=== PATIENT | male | born 1995 | race Caucasian/White ===

== ENCOUNTER 2022-03-01 14:31 | Emergency (ER) | payer BC, SELFPAY ==
[2022-03-01 14:32] VITALS: BP 146/101; PULSE 105; RESP 14; TEMP 36.3; O2SAT 96; BMI 35.8
[2022-03-01 15:03] VITALS: BP 132/87; PULSE 86; RESP 14
--- NOTE | 2022-03-01 15:14 | EKG12_ITS ---
Test Reason : Blood Pressure : / mmHG Vent. Rate : 069 BPM Atrial Rate : 069 BPM P-R Int : 142 ms QRS Dur : 090 ms QT Int : 352 ms P-R-T Axes : 031 025 016 degrees QTc Int : 377 ms Normal sinus rhythm with sinus arrhythmia Normal ECG Confirmed by KODAK CONTRERAS, WINSOME ([id number]), news video editor ROSA IRVIN ([id number]) on 03/02/2022 2:50:04 PM Referred By: LINDSEY Confirmed By:WINSOME CANDELARIO MD
--- NOTE | 2022-03-01 15:15 | EDS_ITS ---
HPI History of Present Illness Chief Complaint: Palpitations Narrative Narrative: 26-year-old male with no past medical history presenting with palpitations since last evening. Patient states it is intermittent. He does not have any pain with it. He does not feel lightheaded or dizzy. Patient has no shortness of breath. Patient states that it will happen at rest or when he is moving. Nothing makes it worse or better. Denies any cardiac or pulmonary history. No recent travel history, immobilization, hormone supplementation, calf pain or swelling, history of DVT/PE, history of cancer. No nausea or vomiting. He was otherwise healthy prior to this. [facility] Medical History Stargardt's disease Medical History no medical history Home Medications doxycycline hyclate 100 mg PO DAILY #14 cap 03/01/22 [Rx Last Taken Unknown] Allergy/AdvReac Type Severity Reaction Status Date / Time cephalexin [From Keflex] Allergy Anaphylaxis Verified 03/01/22 14:34 Surgical History no surgical history Social History Smoking Status: Current some day smoker tobacco type: cigarettes ROS ROS ED Constitutional Constitutional ED: Denies chills, fever(s) or sweats Eyes Eyes: Denies blurry vision or change in vision ENT ENT ED: Denies ear pain or sore throat Cardiovascular Cardiovascular: Reports palpitations; Denies chest pain or racing heartbeat Respiratory/Chest Respiratory/Chest: Denies cough, dyspnea or sputum Gastrointestinal Gastrointestinal: Denies abdominal pain, constipation, diarrhea, nausea or vomiting Genitourinary Genitourinary ED: Denies dysuria, hematuria or urinary frequency Musculoskeletal Musculoskeletal: Denies arthralgias, myalgias or neck pain Integumentary Denies abscess, Abrasions or rash Neurologic Neurologic: Denies headache(s), paresthesias or weakness Psychiatric Psychiatric: Denies anxiety, depression, suicidal ideation or suicidal thoughts Endocrine Endocrinology: Denies polydipsia or polyuria EXAM Physical Exam Const Vital Signs: 03/01/22 14:32 03/01/22 15:03 03/01/22 15:04 Temperature 97.4 F L Temperature Source Temporal Pulse Rate 105 H 86 Respiratory Rate 14 14 Respiratory Effort Normal Non-Labored Blood Pressure 146/101 H 132/87 H Blood Pressure Mean 116 102 Pulse Ox 96 Oxygen Delivery Method Room Air Room Air 03/01/22 15:14 03/01/22 17:50 Temperature Temperature Source Pulse Rate 82 Respiratory Rate 18 Respiratory Effort Blood Pressure 138/84 H Blood Pressure Mean Pulse Ox 99 Oxygen Delivery Method Room Air Positive well nourished General Appearance ED: NAD; Negative for pallor HEENT Reports moist mucous membranes Negative for trauma Eyes PERRL and EOMs intact bilaterally Resp normal respiratory effort and clear to auscultation bilaterally Cardio regular rate and regular rhythm GI normal to inspection, nondistended, normoactive bowel sounds Extremity normal to inspection General Extremety ED: Negative for edema or tenderness General Extremity: Negative for edema Neuro oriented x3, CN's II-XII intact bilaterally and no sensory deficits noted Sensorium / Orientation: alert Motor Exam: strength 5/5 throughout Psych mental status grossly normal Skin no rashes or lesions noted General Skin Exam: Negative for jaundice or pallor MDM MDM MDM Narrative Medical decision making narrative: 26-year-old otherwise healthy male presenting with palpitations which started last evening. He has no associated symptoms with it. He states that he does have a history of anxiety 10 years ago when he had generalized anxiety disorder. He does not state that he has had that since. He is not medicated for it. He is not established with a primary care physician. I obtained an EKG and on my interpretation he has a normal sinus rhythm with a ventricular rate of 69 bpm without signs of ischemic change. CBC and BMP within normal limits. High-sensitivity troponin is less than 3. Chest x-ray on my interpretation shows a left lower lobe infiltrate. The radiologist does agree. After further discussing this with the patient he states that he has been working nights in the cold on [employer]. He had COVID-19 7 months ago. He did not need hospitalization. It is possible this could be remnants of that before because he is not having fever, chills, cough, chest pain. Rapid Covid is negative. D-dimer is negative. I feel at this point patient can be treated clinically as acute acquired pneumonia. He started on doxycycline. He is given return precautions and referral for follow-up Impression: 1. Palpitations 2. Community-acquired pneumonia Lab Data Labs: Laboratory Results - last 24 hr 03/01/22 03/01/22 03/01/22 15:10 15:10 15:55 WBC 7.2 RBC 4.81 Hgb 14.7 Hct 40.9 MCV 85.0 MCH 30.6 MCHC 35.9 RDW Std Deviation 36.2 RDW Coeff of Melina 11.8 Plt Count 235 MPV 10.0 Immature Gran % (Auto) 0.300 Neut % (Auto) 69.3 Lymph % (Auto) 16.9 L Mckenzie % (Auto) 10.7 H Eos % (Auto) 2.4 Baso % (Auto) 0.4 Absolute Neuts (auto) 5.0 Absolute Lymphs (auto) 1.22 Nucleated RBC % 0 D-Dimer Quant (PE/DVT) < 0.27 L Sodium 139 Potassium 4.0 Chloride 108 H Carbon Dioxide 27.0 Anion Gap 4 L BUN 20 H Creatinine 1.04 Estim Creat Clear Calc 105.75 Est GFR (MDRD) Af Amer 109 Est GFR (MDRD) Non-Af 90 BUN/Creatinine Ratio 19.2 Glucose 105 Calcium 8.5 Troponin I High Sens < 3 L Radiography Diagnostic Testing: Clinical Impression(s) from Imaging Studies Chest X-Ray 03/01/22 15:30 IMPRESSION: Patchy left lower lobe infiltrate. Radiological follow-up recommended. Electronically Signed: Britton Dixon MD at 15:42 EDT , Discharge Plan Triage Chief Complaint: Palpitations ED Provider: John Dasilva Dx/Rx/DC Orders Instructions: ED Palpitations, ED Pneumonia (Adult) Prescriptions: New doxycycline hyclate 100 mg capsule 100 mg PO DAILY Qty: 14 RF: 0 Primary Care Provider: Care Physician,No Primary Referrals: Fast,Sydney, DO [NON-STAFF] - 3-5 Days Care Physician,No Primary [Primary Care Provider] - Disposition Disposition: Home, Self Care Discharge Date/Time: 03/01/22 17:51
--- NOTE | 2022-03-01 15:19 | NURSING ---
NO OLD EKGS
--- NOTE | 2022-03-01 15:20 | NURSING ---
CALLED [facility], ETA IS 90 MIN
[2022-03-01 15:22] LABS: Absolute Lymphocyte Count 1.22 X10^3/uL (0.83-4.51); Basophil# 0.03 X10^3/uL; Basophil% 0.4 % (0-1); Eosinophil# 0.17 X10^3/uL; Eosinophils% 2.4 % (0-5); Hematocrit 40.9 % (40-54); Hemoglobin 14.7 g/dL (13.0-16.5); Lymphocyte # 1.22 X10^3/ul (0.83-4.51); Lymphocyte % 16.9 % (19-41); Mean Corp Hgb Conc 35.9 g/dL (32-36); Mean Corpuscular Hgb 30.6 pg (27.0-32.0); Monocyte# 0.77 X10^3/uL; Monocyte% 10.7 % (0-10); NRBC Flagged by Analyzer 0 % (0-5); Neutrophil % 69.3 % (47-70); Platelet Count 235 K/mm3 (150-450); RBC Distribution Width CV 11.8 % (11.6-14.6); RBC Distribution Width SD 36.2 fl (35.1-43.9); Red Blood Count 4.81 M/mm3 (4.6-6.2); White Blood Count 7.2 K/mm3 (4.4-11.0)
--- NOTE | 2022-03-01 15:30 | RAD_ITS ---
STUDY: X-RAY CHEST REASON FOR EXAM: Male, 26 years old. Palpitations TECHNIQUE: Single AP portable view of the chest. COMPARISON: None. FINDINGS: EKG electrodes are seen. Patchy infiltrate in the left lower lobe. Follow-up is recommended. There is no demonstrated pleural abnormality. Normal size heart. Normal mediastinum and roberto. Normal visualized pulmonary arteries. Normal visualized aortic arch and descending thoracic aorta. Normal visualized thoracic spine. Normal visualized ribs, clavicles, and shoulders. There is no demonstrated abnormality of the visualized soft tissue structures of the upper abdomen. RAD/Chest 1 View (Portable) IMPRESSION: Patchy left lower lobe infiltrate. Radiological follow-up recommended. Electronically Signed: Britton Dixon MD at 15:42 EDT ,
[2022-03-01 15:48] LABS: Anion Gap 4 (5-15); BUN 20 mg/dL (7-18); BUN/Creat Ratio 19.2 RATIO (10-20); Calcium,Total 8.5 mg/dL (8.5-10.1); Chloride 108 mmol/L (98-107); Creatinine, Serum 1.04 mg/dL (0.70-1.30); EST Glomerular Filtration Rate 90 mL/min (>60); Est Glom Filt Rate - Afr Amer 109 mL/min (>60); Estimated Creatinine Clearance 105.75 ml/min; Glucose 105 mg/dL (74-106); Sodium Level 139 mmol/L (136-145); Troponin-I HS < 3 pg/mL (3.0-78.0)
--- NOTE | 2022-03-01 16:12 | CM.ED ---
SW Note Referral Source: Case Find Referral Reason: No Primary Care Physician (PCP) SW reviewed chart and noted that patient has no PCP. SW provided patient with list of [facility] and [facility] Physician List for reference. SW remains available for any additional needs. Plan: Provided patient with PCP information Denisse CASH
[2022-03-01 16:50] LABS: D-Dimer Quantitative (DVT/PE) < 0.27 FEU/ug/m (0.27-0.49)
[2022-03-01] MEDS: Doxycycline 100 MG CAPSULE PO (17:48)
[2022-03-01 17:50] VITALS: BP 138/84; PULSE 82; RESP 18; O2SAT 99
== END 2022-03-01 17:51 | disposition home or self-care (01) ==
PROVIDERS: Emergency Provider Student in an Organized Health Care Education/Training Program; Visit Provider Student in an Organized Health Care Education/Training Program
DX: J18.9 Pneumonia, unspecified organism (principal); R00.2 Palpitations; F17.210 Nicotine dependence, cigarettes, uncomplicated; H35.50 Unspecified hereditary retinal dystrophy; Z86.16 Personal history of COVID-19
CPT/HCPCS: 71045; 80048; 84484; 85025; 85379; 87426; 93005; 99284; A4216

== ENCOUNTER 2023-02-03 19:37 | Emergency (ER) | payer OTHER, SELFPAY ==
[2023-02-03 19:38] VITALS: BP 127/87; PULSE 127; RESP 15; TEMP 37.1; O2SAT 94
[2023-02-03 19:49] VITALS: BMI 39.5
--- NOTE | 2023-02-03 19:51 | EKG12_ITS ---
Test Reason : CP Blood Pressure : / mmHG Vent. Rate : 114 BPM Atrial Rate : 114 BPM P-R Int : 146 ms QRS Dur : 090 ms QT Int : 320 ms P-R-T Axes : 039 016 026 degrees QTc Int : 441 ms Sinus tachycardia Otherwise normal ECG Confirmed by GARCIA CONTRERAS, DEAN ([id number]), fashion editor ROSA IRVIN ([id number]) on 02/04/2023 2:44:14 PM Referred By: BENNY Confirmed By:DEAN ZELAYA MD
[2023-02-03] MEDS: 0.9% Normal Saline 1,000 ML 999 ML IV (19:54)
--- NOTE | 2023-02-03 19:54 | EX.ED.DYSGE1 ---
HPI <LILLY Diggs - Last Filed: 02/03/23 20:53> History of Present Illness Chief Complaint: Chest Pain Narrative Narrative: 27-year-old male with no past medical history presents with palpitations that started around 4 PM. While sitting he started to feel his heart race. His chest feels mildly tight but he has no chest pain. No shortness of breath, nausea or vomiting, or diaphoresis. He had similar symptoms a year ago and thinks it was dehydration. He states he has been eating and drinking normally today. Had some pizza, beer, and water for lunch. He smoked a few cigarettes today. He denies any other drug or alcohol use. No caffeine. He denies recent fever or upper respiratory symptoms. No history of DVT/PE, leg pain or swelling, recent surgery or travel, cough or hemoptysis, or hormone use. PFSH <LILLY Diggs - Last Filed: 02/03/23 20:53> [facility] Medical History Stargardt's disease Medical History no medical history Home Medications doxycycline hyclate 100 mg capsule 100 mg PO DAILY #14 caps 03/01/22 [Rx Last Taken Unknown] hydroxyzine HCl 50 mg tablet 50 mg PO BID PRN anxiet #7 tabs 02/03/23 [Rx Last Taken Unknown] Allergy/AdvReac Type Severity Reaction Status Date / Time cephalexin [From Keflex] Allergy Anaphylaxis Verified 02/03/23 19:40 Surgical History no surgical history Social History Smoking Status: Current some day smoker tobacco type: cigarettes ROS <LILLY Diggs - Last Filed: 02/03/23 20:53> ROS ED ROS Narrative Constitutional: Negative for fever, chills, malaise. ENT: Negative for sore throat, ear pain, rhinorrhea. CVS: Set of for palpitations. Negative for chest pain, syncope. Respiratory: Negative for shortness of breath, cough, orthopnea. GI: Negative for abdominal pain, nausea, vomiting, diarrhea, constipation, melena, hematochezia. : Negative for dysuria. Neuro: Negative for headache. Skin: Negative for rash, abscess, or wound. Musc: Negative for joint pain, swelling, trauma. EXAM <LILLY Diggs - Last Filed: 02/03/23 20:53> Physical Exam Narrative Exam Narrative: CONST: Patient sitting in no acute distress. EYES: Normal inspection. ENT: Normal inspection, moist mucous membranes. NECK: Normal inspection. RESP: No respiratory distress, CTAB. CVS: Rapid rate with regular rhythm, no murmur, no gallop. SKIN: Color normal, no rash, warm, dry, intact. EXTREMITIES: Normal appearance, no pedal edema. NEURO: Oriented x4. PSYCH: Normal affect. Const Vital Signs: 02/03/23 19:38 02/03/23 20:42 Temperature 98.7 F Temperature Source Temporal Pulse Rate 127 H 98 Respiratory Rate 15 Blood Pressure 127/87 H 123/83 H Blood Pressure Mean 100 96 Pulse Ox 94 96 Oxygen Delivery Method Room Air <Dr. Amrik Ruiz MD - Last Filed: 02/03/23 20:32> Physical Exam Const Vital Signs: 02/03/23 19:38 02/03/23 20:42 Temperature 98.7 F Temperature Source Temporal Pulse Rate 127 H 98 Respiratory Rate 15 Blood Pressure 127/87 H 123/83 H Blood Pressure Mean 100 96 Pulse Ox 94 96 Oxygen Delivery Method Room Air MDM <LILLY Diggs - Last Filed: 02/03/23 20:53> MDM MDM Narrative Medical decision making narrative: Patient presents with palpitations. He appears well nontoxic. Heart rate is in the 120s and normal sinus rhythm, otherwise normal vital signs. On auscultation heart is rapid but regular with no murmurs. Lungs are clear. He was given a liter of IV fluids and blood work obtained. CBC, BMP, troponin all within normal limits. EKG is no ischemic changes. I reassessed the patient after fluids and his heart rate is 98. He feels improved. He tells me he thinks this may have been anxiety as he is under a lot of stress recently. 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 He states he has had similar symptoms with anxiety before. I prescribed hydroxyzine to take as needed and a primary care referral. He also had some heartburn since he was lying down here and eating pizza earlier she was given a dose of Pepcid. He was comfortable with this plan and discharged in stable condition. Differential: Dehydration, electrolyte abnormality, ACS, arrhythmia Test considered but not ordered: He has no risk factors for PE/DVT and no shortness of breath so I did not order D-dimer. I have personally performed a face to face assessment of the patient and have reviewed the OLEKSANDR Note. I performed a substantive portion of the visit including all aspects of the following. My duque findings include: History is [26-year-old male no seen past medical history. Evaluated by our physician offset assistant press operator. Patient's concern he is having exhilarated heart rate and palpitations. Really no significant chest pain. He denies any fever or chills. No vomiting or diarrhea. He has no known cardiac history. He has not been ill recently. He has never had a DVT or PE. He denies any recent leg pain or swelling. No hemoptysis. No pleuritic chest discomfort. No recent travel, surgery or immobilization. He believes he may have had this 1 other time when he was dehydrated.] Exam is [well-appearing 27-year-old male. Vital signs are stable other than he is tachycardic at 127. Pulse ox 94% on room air no hypoxia. H EENT exam unremarkable. Moist extremities. Neck nontender no JVD. Lungs clear to auscultation bilaterally. Heart tachycardic rate about 125 no murmur. Chest were nontender. Abdomen soft nontender. Moves all 4 extremities. Equal symmetrical radial pulses. Calves are nontender that edema or cords. Neurologically is awake alert with no focal motor deficits. Clinically looks quite well.] Medical Decision Making [27-year-old with tachycardia. Undergo cardiac work-up. IV fluids. He has no reason of a DVT or PE.] Other additions or changes: [None] Lab Data Attestation: I reviewed the patient's lab results. Labs: Laboratory Results - last 24 hr 02/03/23 02/03/23 19:54 19:54 WBC 6.4 RBC 5.21 Hgb 15.7 Hct 44.1 MCV 84.6 MCH 30.1 MCHC 35.6 RDW Std Deviation 37.6 RDW Coeff of Melina 12.2 Plt Count 257 MPV 9.9 Immature Gran % (Auto) 0.200 Neut % (Auto) 62.9 Lymph % (Auto) 24.9 [place] % (Auto) 8.4 Eos % (Auto) 3.0 Baso % (Auto) 0.6 Absolute Neuts (auto) 4.1 Absolute Lymphs (auto) 1.60 Nucleated RBC % 0 Sodium 138 Potassium 3.7 Chloride 106 Carbon Dioxide 22.0 Anion Gap 10 BUN 15 Creatinine 0.84 Estim Creat Clear Calc 129.76 Est GFR (MDRD) Af Amer 139 Est GFR (MDRD) Non-Af 115 BUN/Creatinine Ratio 17.9 Glucose 132 H Calcium 8.7 Troponin I High Sens 4 Radiography Diagnostic Testing: Clinical Impression(s) from Imaging Studies Chest X-Ray 02/03/23 19:55 IMPRESSION: No radiographic evidence of acute cardiopulmonary disease. Electronically Signed: Drew Em MD at 20:23 EST Reading Location ID and State: [facility] / [place] , Service support , EKG Initial EKG: Attestation: I personally reviewed and interpreted this EKG as follows: Interpretation: Sinus Tachycardia Comments: ED attending interpretation of EKG is sinus tachycardia at 114 bpm with no ectopy or ST segment changes <Dr. Amrik Ruiz MD - Last Filed: 02/03/23 20:32> MDM MDM Narrative Medical decision making narrative: I have personally performed a face to face assessment of the patient and have reviewed the OLEKSANDR Note. I performed a substantive portion of the visit including all aspects of the following. My duque findings include: History is [26-year-old male no seen past medical history. Evaluated by our physician offset assistant press operator. Patient's concern he is having exhilarated heart rate and palpitations. Really no significant chest pain. He denies any fever or chills. No vomiting or diarrhea. He has no known cardiac history. He has not been ill recently. He has never had a DVT or PE. He denies any recent leg pain or swelling. No hemoptysis. No pleuritic chest discomfort. No recent travel, surgery or immobilization. He believes he may have had this 1 other time when he was dehydrated.] Exam is [well-appearing 27-year-old male. Vital signs are stable other than he is tachycardic at 127. Pulse ox 94% on room air no hypoxia. H EENT exam unremarkable. Moist extremities. Neck nontender no JVD. Lungs clear to auscultation bilaterally. Heart tachycardic rate about 125 no murmur. Chest were nontender. Abdomen soft nontender. Moves all 4 extremities. Equal symmetrical radial pulses. Calves are nontender that edema or cords. Neurologically is awake alert with no focal motor deficits. Clinically looks quite well.] Medical Decision Making [27-year-old with tachycardia. Undergo cardiac work-up. IV fluids. He has no reason of a DVT or PE.] Other additions or changes: [None] Lab Data Lab results narrative: CBC normal. White count 6.4. H&H of 15 and 44. Platelets 257. Electrolytes unremarkable gap of 10. Normal BUN and creatinine. Glucose 132. Troponin is normal at 4. Chest x-ray is negative. Normal cardiac silhouette mediastinum. Labs: Laboratory Results - last 24 hr 02/03/23 02/03/23 19:54 19:54 WBC 6.4 RBC 5.21 Hgb 15.7 Hct 44.1 MCV 84.6 MCH 30.1 MCHC 35.6 RDW Std Deviation 37.6 RDW Coeff of Melina 12.2 Plt Count 257 MPV 9.9 Immature Gran % (Auto) 0.200 Neut % (Auto) 62.9 Lymph % (Auto) 24.9 [place] % (Auto) 8.4 Eos % (Auto) 3.0 Baso % (Auto) 0.6 Absolute Neuts (auto) 4.1 Absolute Lymphs (auto) 1.60 Nucleated RBC % 0 Sodium 138 Potassium 3.7 Chloride 106 Carbon Dioxide 22.0 Anion Gap 10 BUN 15 Creatinine 0.84 Estim Creat Clear Calc 129.76 Est GFR (MDRD) Af Amer 139 Est GFR (MDRD) Non-Af 115 BUN/Creatinine Ratio 17.9 Glucose 132 H Calcium 8.7 Troponin I High Sens 4 Radiography Chest X-Ray - ED: 1 View, Read by ED Physician, Read by Radiologist, Heart, Lungs, Mediastinum, Bony Structures, No Acute Disease and Chronic Changes Diagnostic Testing: Clinical Impression(s) from Imaging Studies Chest X-Ray 02/03/23 19:55 IMPRESSION: No radiographic evidence of acute cardiopulmonary disease. Electronically Signed: Drew Em MD at 20:23 EST , Chest x-ray, portable, single view interpreted by myself and radiologist shows no acute abnormality. Normal cardiac silhouette. No cardiomegaly. No effusions. No fluid. No infiltrate. Small Rhythm Strip Rhythm Strip: Sinus Tach Rate: 114 EKG Initial EKG: Prior EKG tracings: not available for review Discharge Plan Triage Chief Complaint: Chest Pain ED Midlevel Provider: Irene Khan ED Provider: Amrik Ruiz Dx/Rx/DC Orders Clinical Impression: Palpitation, Anxiety Instructions: ED Palpitations Prescriptions: New hydroxyzine HCl 50 mg tablet 50 mg PO BID PRN (Reason: anxiet) Qty: 7 0RF No Action doxycycline hyclate 100 mg capsule 100 mg PO DAILY Qty: 14 0RF Primary Care Provider: Care Physician,No Primary Referrals: Alfred Sanchez MD [Med Staff - Active Staff] - Doris Greene [Non-Staff] - Care Physician,No Primary [Primary Care Provider] - Activity Restrictions/Additional Instructions: Today your blood work looks normal. Your chest x-ray was negative. Your symptoms may be from anxiety. I prescribed hydroxyzine to take as needed for acute anxiety. Please also call a primary care doctor for follow-up appointment. I listed two above. Disposition Disposition: Home, Self Care
--- NOTE | 2023-02-03 19:55 | RAD_ITS ---
EXAM: XR CHEST, 1 VIEW CLINICAL INDICATION: palpitations TECHNIQUE: Frontal view of the chest. This report was created using [employer] report generation technology. COMPARISON: 03.01.22 FINDINGS: LUNGS AND PLEURAL SPACES: Unremarkable. No consolidation or edema. No pneumothorax. No effusion. HEART: Unremarkable. Cardiac silhouette not enlarged. MEDIASTINUM: Central airways and mediastinal contour are unremarkable. BONES/JOINTS: Unremarkable. SOFT TISSUES: Unremarkable. RAD/Chest 1 View (Portable) IMPRESSION: No radiographic evidence of acute cardiopulmonary disease. Electronically Signed: Drew Em MD at 20:23 EST ,
[2023-02-03 20:02] LABS: Absolute Neutrophil Count 4.1 X10^3/uL (2.0-7.7); Basophil# 0.04 X10^3/uL; Basophil% 0.6 % (0-1); Eosinophil# 0.19 X10^3/uL; Hematocrit 44.1 % (40-54); Hemoglobin 15.7 g/dL (13.0-16.5); Lymphocyte % 24.9 % (19-41); Mean Corp Hgb Conc 35.6 g/dL (32-36); Mean Corpuscular Hgb 30.1 pg (27.0-32.0); Mean Corpuscular Volume 84.6 fL (80-94); Mean Platelet Vol. 9.9 fl (6.2-12.0); Monocyte# 0.54 X10^3/uL; Monocyte% 8.4 % (0-10); NRBC Flagged by Analyzer 0 % (0-5); Neutrophil # 4.05 X10^3/uL (2.7-7.7); Neutrophil % 62.9 % (47-70); Platelet Count 257 K/mm3 (150-450); RBC Distribution Width CV 12.2 % (11.6-14.6); RBC Distribution Width SD 37.6 fl (35.1-43.9); Red Blood Count 5.21 M/mm3 (4.6-6.2); White Blood Count 6.4 K/mm3 (4.4-11.0)
[2023-02-03 20:21] LABS: Anion Gap 10 (5-15); BUN 15 mg/dL (7-18); BUN/Creat Ratio 17.9 RATIO (10-20); Calcium,Total 8.7 mg/dL (8.5-10.1); Chloride 106 mmol/L (98-107); Creatinine, Serum 0.84 mg/dL (0.70-1.30); EST Glomerular Filtration Rate 115 mL/min (>60); Est Glom Filt Rate - Afr Amer 139 mL/min (>60); Estimated Creatinine Clearance 129.76 ml/min; Glucose 132 mg/dL (74-106); Potassium 3.7 mmol/L (3.5-5.1); Sodium Level 138 mmol/L (136-145); Troponin-I HS 4 pg/mL (3.0-78.0)
[2023-02-03 20:42] VITALS: BP 123/83; PULSE 98; O2SAT 96
[2023-02-03 21:02] VITALS: BP 131/95; PULSE 100; RESP 16; O2SAT 95
[2023-02-03] MEDS: Famotidine 20 MG Tablet PO (21:02)
== END 2023-02-03 21:13 | disposition home or self-care (01) ==
PROVIDERS: Physician Assistant; Emergency Provider Emergency Medicine; Visit Provider Emergency Medicine
DX: F41.9 Anxiety disorder, unspecified (principal); F17.210 Nicotine dependence, cigarettes, uncomplicated; R00.2 Palpitations
CPT/HCPCS: 71045; 80048; 84484; 85025; 93005; 99283; J7030; A4216

== ENCOUNTER 2023-03-03 18:08 | Emergency (ER) | payer OTHER, SELFPAY ==
[2023-03-03 18:09] VITALS: BP 151/94; PULSE 97; RESP 18; TEMP 36.6; O2SAT 96; BMI 36.9
--- NOTE | 2023-03-03 18:29 | EX.ED.VIS.UR ---
HPI HPI - URI History of Present Illness Chief Complaint: Ear Problem Detail of Chief Complaint: Right ear pain and decreased hearing Informant: patient Narrative Narrative: Patient is the urgency department states he had some discomfort to the right ear that started yesterday. He started putting Debrox solution in his ears yesterday and today irrigated the right ear. Patient states he had a large amount of wax the size of a kidney anderson come out of his ear. Since that time he had a hard time hearing. Patient denies any fever or chills or sweats. ROS ROS ED Review of Systems ROS Unobtainable: other Constitutional Constitutional ED: Reports lethargy; Denies chills, fever(s), sweats or weight loss Eyes Eyes: Denies blurry vision, change in vision or diplopia ENT ENT ED: Reports ear pain; Denies rhinorrhea or sore throat Cardiovascular Cardiovascular: Denies chest pain, orthopnea or racing heartbeat Respiratory/Chest Respiratory/Chest: Denies cough, dyspnea, dyspnea on exertion, orthopnea or sputum Gastrointestinal Gastrointestinal: Denies abdominal pain, diarrhea, nausea or vomiting Genitourinary Genitourinary ED: Denies dysuria, hematuria or urinary frequency Musculoskeletal Musculoskeletal: Denies arthralgias, back pain, myalgias or neck pain Integumentary Denies abscess, Abrasions or rash Neurologic Neurologic: Denies headache(s) or weakness Psychiatric Psychiatric: Denies anxiety, depression or suicidal thoughts Endocrine Endocrinology: Denies polydipsia, polyphagia or polyuria Hematologic/Lymphatic Hematologic/Lymphatic: Denies easy bleeding, easy bruising or lymphadenopathy Allergic/Immunologic Allergic/Immunologic ED: Denies mouth swelling, tongue swelling or urticaria PFSH PENDING SALE TO [facility] Medical History Stargardt's disease Medical History no medical history Home Medications doxycycline hyclate 100 mg capsule 100 mg PO DAILY #14 caps 03/01/22 [Rx Last Taken Unknown] hydroxyzine HCl 50 mg tablet 50 mg PO BID PRN anxiet #7 tabs 02/03/23 [Rx Last Taken Unknown] Allergy/AdvReac Type Severity Reaction Status Date / Time cephalexin [From Keflex] Allergy Anaphylaxis Verified 03/03/23 18:12 Surgical History no surgical history Social History Smoking Status: Current some day smoker tobacco type: cigarettes EXAM Physical Exam Const Vital Signs: 03/03/23 18:09 Temperature 98 F Temperature Source Temporal Pulse Rate 97 Respiratory Rate 18 Blood Pressure 151/94 H Blood Pressure Mean 113 Pulse Ox 96 Oxygen Delivery Method Room Air Positive well nourished and well developed General Appearance ED: well developed and NAD HEENT Reports moist mucous membranes HEENT Narrative: I am unable to visualize tympanic membranes as both ear canals have cerumen impactions. normocephalic and atraumatic; Negative for trauma or tenderness Eyes PERRL and EOMs intact bilaterally General Eye ED: Negative for pale conjunctiva or scleral icterus Neck no lymphadenopathy, supple and no JVD General: Negative for tenderness Chest Wall inspection of chest normal and palpation of chest normal Chest: Negative for tenderness Resp normal respiratory effort and clear to auscultation bilaterally Effort and Inspection: Negative for respiratory distress or pain with movement Auscultation: Negative for rhonchi, wheezes or diminished lung sounds Cardio regular rate, regular rhythm, S1 normal heart sound, S2 normal heart sound and no murmurs Peripheral Pulses: pulses 2+ throughout GI normal to inspection, nondistended, normoactive bowel sounds, soft to palpation, non-tender, non-distended and no masses Back/Spine no CVA tenderness and no thoracic nor lumbar tenderness Extremity normal to inspection General Extremety ED: Negative for edema General Extremity: Negative for edema Neuro oriented x3, CN's II-XII intact bilaterally, no sensory deficits noted and gait normal Sensorium / Orientation: awake, alert, oriented to person, oriented to place and oriented to time Motor Exam: strength 5/5 throughout and strength abnormal Psych mental status grossly normal Skin no rashes or lesions noted and no wounds MDM MDM MDM Narrative Medical decision making narrative: Patient presents with decreased hearing from the right ear. Patient has history of cerumen impactions. Evaluation of both ears does reveal bilateral cerumen impactions. We attempted Debrox and the right ear and irrigation and was only able to get small amount of wax out. I attempted using a curette but patient was not able to tolerate very well and only small amount of wax was able to be removed. At this point I recommended continued Debrox at home. I will refer him to ENT for follow-up. Patient comfortable with plan going forward. Discharge Plan Triage Chief Complaint: Ear Problem ED Provider: Rudy Billy Dx/Rx/DC Orders Clinical Impression: Bilateral impacted cerumen Instructions: ED Cerumen Impaction Treated Prescriptions: No Action doxycycline hyclate 100 mg capsule 100 mg PO DAILY Qty: 14 0RF hydroxyzine HCl 50 mg tablet 50 mg PO BID PRN (Reason: anxiet) Qty: 7 0RF Primary Care Provider: Care Physician,No Primary Referrals: Eduardo Zhao MD [Med Staff - Courtesy Staff] - 3-5 Days Care Physician,No Primary [Primary Care Provider] - Disposition Disposition: Home, Self Care
[2023-03-03] MEDS: Carbamide Peroxide 15 ML Bottle 5 DRP OTIC (18:41)
[2023-03-03 20:11] VITALS: PULSE 98; RESP 16; TEMP 36.6
== END 2023-03-03 20:11 | disposition home or self-care (01) ==
PROVIDERS: Emergency Provider Emergency Medicine; Visit Provider Emergency Medicine
DX: H61.23 Impacted cerumen, bilateral (principal); F17.210 Nicotine dependence, cigarettes, uncomplicated
CPT/HCPCS: 99283

== ENCOUNTER 2023-04-05 12:32 | Emergency (ER) | payer OTHER, SELFPAY ==
[2023-04-05 12:32] VITALS: BP 156/91; PULSE 109; RESP 18; TEMP 36.1; O2SAT 95; BMI 37.9
[2023-04-05 12:50] VITALS: BP 153/84; PULSE 108; RESP 18; TEMP 36.4; O2SAT 95
--- NOTE | 2023-04-05 13:09 | ED.VIS.GI ---
HPI HPI - GI History of Present Illness Chief Complaint: Abd Pain Informant: patient Narrative Narrative: Patient is a 27-year-old male with history of pancreatitis presenting with right upper quadrant abdominal pain. Patient states the pain started this morning. States is a stabbing pain. He states he did drink 12 beers last night. He states that he was started feel better than he had a large meal and his pain got worse. The pain is worse with movement. Notes he has been belching more. He also reports history of GERD. He denies any symptoms at this time. States he had prior pain like this on his left side that was pancreatitis. Patient is no other complaints at this time. Denies any chest pain or difficulty breathing. Denies any urinary symptoms. Denies any falls or trauma last night. PFSH PFS Medical History Stargardt's disease Home Medications NK 04/05/23 [History Last Taken Unknown] Allergy/AdvReac Type Severity Reaction Status Date / Time cephalexin [From Keflex] Allergy Anaphylaxis Verified 04/05/23 12:40 Social History Smoking Status: Current some day smoker tobacco type: cigarettes ROS ROS ED Constitutional Constitutional ED: Denies chills or fever(s) ENT ENT ED: Denies sore throat Respiratory/Chest Respiratory/Chest: Denies cough or dyspnea Gastrointestinal Gastrointestinal: Reports abdominal pain; Denies constipation, diarrhea, nausea or vomiting Musculoskeletal Musculoskeletal: Denies arthralgias or myalgias Integumentary Denies rash Neurologic Neurologic: Denies weakness Psychiatric Psychiatric: Denies anxiety EXAM Physical Exam Const Vital Signs: 04/05/23 12:32 04/05/23 12:50 Temperature 96.9 F L 97.6 F L Temperature Source Temporal Oral Pulse Rate 109 H 108 H Respiratory Rate 18 18 Blood Pressure 156/91 H 153/84 H Blood Pressure Mean 112 107 Pulse Ox 95 95 Oxygen Delivery Method Room Air Room Air Positive well nourished and well developed General Appearance ED: well developed and NAD; Negative for pallor HEENT Reports moist mucous membranes normocephalic and atraumatic Eyes PERRL and EOMs intact bilaterally General Eye ED: Negative for scleral icterus Neck supple and no JVD Resp normal respiratory effort and clear to auscultation bilaterally Cardio regular rate, regular rhythm and no murmurs GI non-tender and non-distended GI Narrative: Negative Dahl sign, no pain at McBurney's point Auscultation: normoactive bowel sounds Palpation: soft; Negative for tender or guarding Back/Spine no CVA tenderness Extremity full ROM General Extremety ED: Negative for edema General Extremity: Negative for edema Neuro moves all extremities Sensorium / Orientation: alert, oriented to person, oriented to place and oriented to time Motor Exam: Negative for general weakness Psych mental status grossly normal and thought process normal Skin no wounds General Skin Exam: Negative for jaundice or pallor MDM MDM MDM Narrative Medical decision making narrative: Patient is evaluated for right-sided upper abdominal pain after drinking last night. Pain was worse after a meal. Differential includes gastritis, pancreatitis, cholecystitis, choledocholithiasis. Patient is mildly tachycardic and hypertensive upon arrival. On my exam he states he has no symptoms anymore and is feeling better. He has no reproducible abdominal tenderness. Work-up including IV fluids, Zofran and labs were obtained especially given his history of pancreatitis. Patient is now telling nurse that he is feeling better and would like to just go home and drink fluids. Discussed given a p.o. challenge in the ER and he states he thinks he will be fine. Discussed that we could be missing a more serious pathology such as cholecystitis, pancreatitis or some type of obstruction. Patient states he will return if his symptoms worsen. Patient is acting appropriate and has capacity to make this decision. Is given discharge instructions and referral to GI. Discharge Plan Triage Chief Complaint: Abd Pain ED Provider: Liana Erickson Dx/Rx/DC Orders Clinical Impression: Abdominal pain of unknown cause Instructions: ED Abdominal Pain Unkn Cause Male... Prescriptions: No Action NK Primary Care Provider: Care Physician,No Primary Referrals: Friend,Serge, DO [Med Staff - Active Staff] - As Needed Care Physician,No Primary [Primary Care Provider] - Activity Restrictions/Additional Instructions: The cause of your symptoms is not clear as you did not want to stay for blood work or further evaluation. If your pain return if you have further concerns please return to the emergency room and you could we can evaluate you further. In the meantime drink lots of fluids and stick to a bland diet. Avoid alcohol intake. Take your antacids. There could be something such as obstruction of your gallstone, pancreatitis or other acute abnormality that we did not diagnose at this time. You have been given referral for GI specialist since you have acid reflux and history of pancreatitis for further outpatient evaluation if you choose to. Disposition Disposition: Home, Self Care
--- NOTE | 2023-04-05 13:25 | ED.RN ---
PT STUCK TWICE FOR AN IV, AND THEN REQUESTING TO LEAVE NOT TOLERATING ANY OTHER FURTHER STICKS. DR. PALACIOS INFORMED AND PT GIVEN D/C INSTRUCTIONS.
== END 2023-04-05 13:27 | disposition home or self-care (01) ==
PROVIDERS: Emergency Provider Emergency Medicine; Visit Provider Emergency Medicine
DX: R10.11 Right upper quadrant pain (principal); F17.210 Nicotine dependence, cigarettes, uncomplicated
CPT/HCPCS: 99282

== ENCOUNTER 2023-07-14 16:23 | Emergency (ER) | payer OTHER, SELFPAY ==
[2023-07-14 16:27] VITALS: BP 126/86; PULSE 95; RESP 18; TEMP 36.5; O2SAT 98; BMI 37.1
--- NOTE | 2023-07-14 16:40 | EDS_ITS ---
HPI History of Present Illness Chief Complaint: General Illness Detail of Chief Complaint: Cough and congestion. Fatigue. Informant: patient Onset/Context/Timing Onset: Days Context: Gradual Onset Timing: Continuous Current Severity: Mild Maximum Severity: Mild Narrative Narrative: 27-year-old male dyspnea past medical history. States that cough congestion fatigue for the last several days. Cough with yellowish sputum. No hemoptysis. No fever. No vomiting or diarrhea. This is day 3 of his symptoms. No exposure anyone with COVID. He has had pneumonia in the past. Denies any shortness of breath. Prior similar symptoms: Yes Recent Illness/Hospitalization: No PFSH PFS Medical History Stargardt's disease Home Medications NK 04/05/23 [History Last Taken Unknown] Allergy/AdvReac Type Severity Reaction Status Date / Time cephalexin [From Keflex] Allergy Anaphylaxis Verified 07/14/23 16:27 Social History Smoking Status: Current some day smoker tobacco type: cigarettes ROS ROS ED ROS Narrative Cough. Fatigue. Review of Systems ROS Unobtainable: Denies due to encephalopathy Constitutional Constitutional ED: Denies chills or fever(s) Eyes Eyes: Denies blurry vision ENT ENT ED: Denies ear pain, rhinorrhea or sore throat Cardiovascular Cardiovascular: Denies chest pain, palpitations or racing heartbeat Respiratory/Chest Respiratory/Chest: Reports cough; Denies dyspnea Gastrointestinal Gastrointestinal: Denies abdominal pain, constipation, diarrhea, melena, nausea or vomiting Genitourinary Genitourinary ED: Denies dysuria or hematuria Musculoskeletal Musculoskeletal: Denies arthralgias Integumentary Denies abscess Neurologic Neurologic: Denies headache(s) Psychiatric Psychiatric: Denies anxiety Endocrine Endocrinology: Denies cold intolerance Hematologic/Lymphatic Hematologic/Lymphatic: Denies easy bruising or lymphadenopathy Allergic/Immunologic Allergic/Immunologic ED: Denies mouth swelling, tongue swelling or urticaria EXAM Physical Exam Narrative Exam Narrative: Well-appearing 27-year-old male. Vital signs stable afebrile. Pulse ox 98% on room air no signs hypoxia. No distress. H EENT exam unremarkable. Posterior pharynx normal. Moist with membranes. Neck nontender no JVD. No lymphadenopathy. Lungs clear to auscultation bilaterally. Heart regular rhythm no murmur rate about 90. Chest wall nontender. Abdomen soft nontender. Back nontender. Moving all 4 extremities. Calves are nontender without edema or cords. He is awake alert. Answer questions following commands. Normal motor strength. Const Vital Signs: 07/14/23 16:27 07/14/23 16:50 Temperature 97.7 F L Temperature Source Temporal Pulse Rate 95 Respiratory Rate 18 Respiratory Pattern Normal Blood Pressure 126/86 H Blood Pressure Mean 99 Pulse Ox 98 Oxygen Delivery Method Room Air Positive well nourished and well developed; Negative for cachectic, contractures or unkempt General Appearance ED: well developed and NAD; Negative for unkempt, cachectic, contractures, cyanotic, diaphoretic or pallor Nutritional Appearance: Negative for cachectic HEENT Reports moist mucous membranes; Denies dry mucous membranes Negative for trauma or tenderness Mouth ED: No dry mucous membranes Mouth: No dry mucous membranes Eyes PERRL and EOMs intact bilaterally General Eye ED: Negative for pale conjunctiva or scleral icterus Neck no lymphadenopathy, supple and no JVD General: Negative for tenderness Lymph Lymphatic: Negative for other Chest Wall inspection of chest normal and palpation of chest normal Chest: Negative for other Resp normal respiratory effort and clear to auscultation bilaterally Effort and Inspection: Negative for retractions Auscultation: Negative for rales, rhonchi or wheezes Cardio regular rate, regular rhythm, S1 normal heart sound, S2 normal heart sound and no murmurs Palpation: Negative for palpable S3 or palpable S4 Rate: Negative for bradycardia or tachycardic Rhythm: Negative for abnormal rhythm GI normal to inspection, nondistended, normoactive bowel sounds, non-tender, non- distended and no masses Inspection: Negative for abdominal distention Auscultation: normoactive bowel sounds Palpation: soft; Negative for tender or guarding Back/Spine no CVA tenderness General Back: Negative for CVA tenderness or other Cervical Spine: Negative for cervical spine tenderness Thoracic Spine / Upper Back: Negative for thoracic spinal tenderness Lumbar Spine / Lower Back: Negative for lumbar spinal tenderness Extremity normal to inspection General Extremety ED: Negative for edema or tenderness General Extremity: Negative for edema Neuro oriented x3 and CN's II-XII intact bilaterally Sensorium / Orientation: alert and orientation impaired; Negative for lethargic or stuporous Motor Exam: strength 5/5 throughout Psych mental status grossly normal Appearance: Negative for unkempt Attitude: No agitated Mood & Affect: Negative for depressed, anxious or tearful Skin no rashes or lesions noted, no wounds and skin turgor normal General Skin Exam: Negative for jaundice or pallor Lesions: No lesion noted Rashes: No rashes noted Trauma: Negative for abrasion Wounds: Negative for wounds noted MDM MDM MDM Narrative Medical decision making narrative: 27-year-old with cough, congestion and fatigue. Chest x-ray be obtained to rule out pneumonia. COVID test. This may just be a viral syndrome. Exam benign. Vital signs unremarkable. Repeat exam patient doing well at 5:29 PM. We went over his test results. He will be discharged home. Treat as a viral syndrome. Fluids and rest. Tylenol Motrin. Follow-up if not improving. History & Record Review Discussion w/independent historian: Patient Lab Data Attestation: I reviewed the patient's lab results. Lab results narrative: Rapid COVID test negative. Radiography Chest X-Ray - ED: 2 View, Read by ED Physician, Normal, Lungs, Mediastinum, Bony Structures and No Acute Disease Diagnostic Testing: Clinical Impression(s) from Imaging Studies Chest X-Ray 07/14/23 16:54 IMPRESSION: Normal x-ray examination of the chest. Electronically Signed: Cesar Corona MD at 17:13 EDT Reading Location ID and State: [address] [place] [address] , Service support , Chest x-ray, 2 views, AP and lateral, interpreted by myself and radiologist shows no acute abnormality. Normal cardiac silhouette. No infiltrate. Discharge Plan Triage Chief Complaint: General Illness ED Provider: Amrik Ruiz Dx/Rx/DC Orders Clinical Impression: Viral URI Instructions: ED URI, Viral, No Abx (Adult) Prescriptions: No Action NK Primary Care Provider: Care Physician,No Primary Referrals: Malachi Sears MD [Med Staff - Floor Sweeper] - 10-14 Days if not better Care Physician,No Primary [Primary Care Provider] - Activity Restrictions/Additional Instructions: Plenty of fluids and rest. Motrin and Tylenol for any fever and body aches. Follow-up with your doctor if not improving. Return if worse. Your chest x-ray was normal. No pneumonia. COVID test negative. Disposition Disposition: Home, Self Care
--- NOTE | 2023-07-14 16:54 | RAD_ITS ---
STUDY: X-RAY CHEST REASON FOR EXAM: Male, 27 years old. cough TECHNIQUE: PA and lateral COMPARISON: February 03, 2023 FINDINGS: The lungs are clear and expanded. There is no demonstrated pleural abnormality. Normal size heart. Normal mediastinum and roberto. Normal visualized pulmonary arteries. Normal visualized aortic arch and descending thoracic aorta. Normal visualized thoracic spine. Normal visualized ribs, clavicles, and shoulders. There is no demonstrated abnormality of the visualized soft tissue structures of the upper abdomen. No significant changes since prior study RAD/Chest PA and Lateral IMPRESSION: Normal x-ray examination of the chest. Electronically Signed: Cesar Corona MD at 17:13 EDT ,
== END 2023-07-14 17:34 | disposition home or self-care (01) ==
PROVIDERS: Emergency Provider Emergency Medicine; Visit Provider Emergency Medicine
DX: J06.9 Acute upper respiratory infection, unspecified (principal); F17.210 Nicotine dependence, cigarettes, uncomplicated
CPT/HCPCS: 71046; 87811; 99282

== ENCOUNTER 2023-07-16 14:06 | Emergency (ER) | payer OTHER, SELFPAY ==
[2023-07-16 14:08] VITALS: BP 123/97; PULSE 97; RESP 18; TEMP 37.3; O2SAT 100; BMI 36.0
== END 2023-07-16 17:57 | disposition left against medical advice (07) ==
LOC: ED 17:57
DX: R05.9 Cough, unspecified (principal)

== ENCOUNTER 2023-08-10 13:26 | Emergency (ER) | payer MEDICAID, SELFPAY ==
[2023-08-10 13:28] VITALS: BP 139/96; PULSE 87; RESP 16; TEMP 36.3; O2SAT 99; BMI 34.8
--- NOTE | 2023-08-10 14:51 | ED.VIS.DENTA ---
HPI History of Present Illness Chief Complaint: Dental Informant: patient Onset/Context/Timing Onset: Days (3 days) Context: Gradual Onset Current Severity: Mild Maximum Severity: Moderate Narrative Narrative: Patient presents with left lower dental pain. Patient states that when his wisdom tooth came in years ago the skin will fold up over the backside of the tooth and sometimes cause inflammation. He started noticing pain again 2 days ago to this area. Today he noted some pain under the angle of his mandible on the left. PFSH PFS Medical History Stargardt's disease Home Medications clindamycin HCl 150 mg capsule 300 mg (2 x 150 mg) PO 4X/DAY #80 CAPSULES 08/10/23 [Rx Last Taken Unknown] Allergy/AdvReac Type Severity Reaction Status Date / Time cephalexin [From Keflex] Allergy Anaphylaxis Verified 08/10/23 13:27 Social History Smoking Status: Current some day smoker tobacco type: cigarettes ROS ROS ED Constitutional Constitutional ED: Denies chills or fever(s) Eyes Eyes: Denies change in vision ENT ENT ED: Reports other Details: Left-sided dental pain ; Denies rhinorrhea or sore throat Cardiovascular Cardiovascular: Denies chest pain Respiratory/Chest Respiratory/Chest: Denies cough or dyspnea Gastrointestinal Gastrointestinal: Denies abdominal pain, nausea or vomiting Musculoskeletal Musculoskeletal: Denies back pain or extremity pain Integumentary Denies Abrasions or rash Neurologic Neurologic: Denies headache(s) Allergic/Immunologic Allergic/Immunologic ED: Denies lip swelling or urticaria EXAM Physical Exam Const Vital Signs: 08/10/23 13:28 Temperature 97.4 F L Temperature Source Temporal Pulse Rate 87 Respiratory Rate 16 Blood Pressure 139/96 H Blood Pressure Mean 110 Pulse Ox 99 Oxygen Delivery Method Room Air Positive well nourished and well developed General Appearance ED: well developed HEENT Reports TM's clear HEENT Narrative: Left third molar intact with fold of gum tissue over the backside of the tooth. Mild edema. Mild tenderness in the submental space at the left mandibular angle. No palpable abscess. No evidence of Ludewig's angina. Tympanic Membrane ED: Yes TM's clear Eyes EOMs intact bilaterally MDM MDM MDM Narrative Medical decision making narrative: Patient be treated with a course of clindamycin. He states he is currently in the process of getting insurance which will cover dental. He will follow up with that. He will use ibuprofen at home for pain. Discharge Plan Triage Chief Complaint: Dental ED Provider: Itzel Ramon Dx/Rx/DC Orders Clinical Impression: Dental infection Instructions: ED Dental Abscess Prescriptions: New clindamycin HCl 150 mg capsule 300 mg PO 4X/DAY Qty: 80 0RF Primary Care Provider: Care Physician,No Primary Referrals: Care Physician,No Primary [Primary Care Provider] - Activity Restrictions/Additional Instructions: Check with your insurance company regarding your upcoming dental coverage and local dentist covered. In the meantime a dental referral list has been given. Disposition Disposition: Home, Self Care
[2023-08-10] MEDS: Clindamycin HCl 150 MG Capsule 300 MG PO (15:11)
== END 2023-08-10 15:12 | disposition home or self-care (01) ==
LOC: ED 15:01
PROVIDERS: Emergency Provider Emergency Medicine; Visit Provider Emergency Medicine
DX: K08.89 Other specified disorders of teeth and supporting structures (principal); F17.210 Nicotine dependence, cigarettes, uncomplicated
CPT/HCPCS: 99283

== ENCOUNTER 2023-09-07 16:41 | Emergency (ER) | payer OTHER, SELFPAY ==
[2023-09-07 16:42] VITALS: BP 138/96; PULSE 93; RESP 16; TEMP 36.8; O2SAT 98; BMI 34.8
--- NOTE | 2023-09-07 17:10 | EX.ED.DYSGE1 ---
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 Medications clindamycin HCl 150 mg capsule 300 mg (2 x 150 mg) PO 4X/DAY #80 CAPSULES 08/10/23 [Rx Last Taken Unknown] Allergy/AdvReac Type Severity Reaction Status Date / Time cephalexin [From Keflex] Allergy Anaphylaxis Verified 09/07/23 16:43 Social History Smoking Status: Former smoker EXAM Physical Exam Const Vital Signs: 09/07/23 16:42 Temperature 98.3 F Temperature Source Temporal Pulse Rate 93 Respiratory Rate 16 Blood Pressure 138/96 H Blood Pressure Mean 110 Pulse Ox 98 Oxygen Delivery Method Room Air [facility] [place] Medical decision making narrative: HISTORY OF PRESENT ILLNESS: Patient presents with sore throat. He states he had 3 days of sore throat. No sick contacts who had similar symptoms 4 days resolve spontaneously. He denies cough. Denies any drooling or difficulty breathing. No ear pain. REVIEW OF SYSTEMS: Pertinent positives: Sore throat Pertinent negatives: Drooling, neck stiffness, shortness of breath, chest pain, vomiting PHYSICAL EXAM: Nursing triage notes reviewed, Vital signs reviewed Constitutional: please see [facility] HENT: MMM, mild erythema noted to the posterior oropharynx, no submandibular edema or induration, uvula midline, bilateral TMs pearly mcdaniel with no hyperemia or middle ear effusion, no mastoid tenderness, no trismus, Eyes: Pupils equal round and reactive to light, Extraocular muscles intact Neck: No stridor, no JVD, full neck ROM Lungs: Clear to auscultation, No wheezing or rales. No increased work of breathing, no conversational dyspnea, no accessory muscle use, no nasal flaring. No respiratory distress noted. The patient speaking full sentences. Heart: Regular rate and rhythm, No murmurs, No rubs and No gallops, 2+ distal pulses (radial, femoral, posterior tibial) in all extremities Skin: No rash or lesions noted MEDICAL DECISION MAKING: Chief Complaint: Sore throat External records reviewed: Prior testing reviewed: No recent strep test noted in the chart. Factors affecting care: none Social determinants of health:none History obtained from others: None Consults: None ALL IMAGES (IF OBTAINED) HAVE BEEN PERSONALLY REVIEWED AND INTERPRETED BY MYSELF. MDM Narrative: The patient was hemodynamically stable, afebrile, nontoxic-appearing. She is speaking in full sentences. There is no signs of airway compromise at this time. I considered the following differential diagnosis: Bacterial versus viral pharyngitis, RPA, WASTEWATER ANALYST, Lemierre's syndrome, Felix's angina. There is no clinical evidence of RPA, WASTEWATER ANALYST, Lemierre's syndrome along with and at this time. Patient will be given prophylactic antibiotics. The patient was given strict return precautions and follow-up instructions. Patient is likely suffering from a viral pharyngitis as evidenced by a sick contact and his who symptoms resolved spontaneously on antibiotics. Gave Tylenol ibuprofen instructions and strict return precautions. The patient and/or family, caregivers express understanding. The patient and/or family, caregivers agrees with the plan. Total critical care time today provided was at least 0 minutes. This excludes separately billable procedures. Critical care time if documented is secondary to the patient having high probability of clinically significant/life threatening deterioration in the patient's condition which required my urgent intervention. Shared decision making: I will have a discussion with the patient and or visitors regarding risk/benefits of further testing or admission. They will be made aware of of the risk/benefits inherent in this decision they will be given the opportunity to voice understanding. Impression: 1. Viral pharyngitis Disposition: Discharge Discharge Plan Triage Chief Complaint: Sore Throat ED Provider: Michel Hill Dx/Rx/DC Orders Prescriptions: No Action clindamycin HCl 150 mg capsule 300 mg PO 4X/DAY Qty: 80 0RF Primary Care Provider: Care Physician,No Primary Referrals: Care Physician,No Primary [Primary Care Provider] -
== END 2023-09-07 17:31 | disposition home or self-care (01) ==
PROVIDERS: Emergency Provider Emergency Medicine; Visit Provider Emergency Medicine
DX: J02.8 Acute pharyngitis due to other specified organisms (principal); Z87.891 Personal history of nicotine dependence
CPT/HCPCS: 99282

== ENCOUNTER 2024-01-06 15:34 | Emergency (ER) | payer OTHER, SELFPAY ==
[2024-01-06 15:35] VITALS: BP 129/90; PULSE 84; RESP 16; TEMP 36.2; O2SAT 97; BMI 34.8
--- OUTSIDE RECORDS SUMMARY | 2024-01-06 19:08 | XMS RPT_ITS | CCD ---
Author Name Unknown Address [id number] [place] [address] Organization [facility] Care Team Providers Care Director Of Counterintelligence Name Role Phone Call, Yanick Fish Unavailable Unavailable Thalia Hunt Unavailable Unavailable DOCTOR, NO FAMILY Primary Care Provider Unavaila DO SHERON Mckeon Emergency Provider DOCTOR, NO FAMILY Attending Provider Unavailable DOCTOR, NO FAMILY Attending Unavailable DOCTOR, NO FAMILY Primary Care Unavailable DOCTOR, NO FAMILY Primary Care Unavailable KRISTIN VELASCO Attending Unavailable DAE TERRY Attending Unavailannika e DOCTOR, NO FAMILY Primary Care Unavailable GABRIEL HAGAN Attending Unavailable DOCTOR, NO FAMILY Primary Care Unavailable GREGORY KENDALL Attending Unavailable DOCTOR, NO FAMILY Primary Care Unavailable SHERON ARTEAGA Attending Unavailable DOCTOR, NO FAMILY Primary Care Unavailable DOCTOR, NO FAMILY Attending Unavailable DOCTOR, NO FAMILY Primary Care Unavailable DOCTOR, NO FAMILY Primary Care Unavailable SHERON ARTEAGA Attending Unavailable DALLIN JOHNS Attending Unavailable SHERON ARTEAGA Attending Unavailable DALLIN JOHNS Attending Unavailable LILLIE CLAY Attending Unavailable KRISTEN RAWLS Attending Unavailable Joshua, SCRIPTKIMBER Attending Unavailable DALLIN JOHNS Attending Unavailable DALLIN JOHNS Attending Unavailable Unavailable Unavailable Unavailable Allergies Allergy Classification Reported Allergen(s) Allergy Type Date of Onset Reaction(s) Facility (2 sources) cephalexin Drug Allergy 01-30-2023 [facility] Repository (5 sources) Cephalexin Drug Allergy 01-04-2021 Anaphylaxis [facility] Medications Current Medications Medication Drug Class(es) Dates Sig (Normalized) Sig (Original) [place] (No Known Home Meds) (3 sources) Start: 01-30-2023 [place] (No Known Home Meds) Active January 30, 2023 12:00am Completed/Discontinued Medications Medication Drug Class(es) Dates Sig (Normalized) Sig (Original) acetaminophen 325 mg / HYDROcodone bitartrate 5 mg oral tablet (6 sources) Opioid Agonist Start: 12-26-2022 End: 01-30-2023 take 1 tablet by mouth every six hours Hydrocodone-Acetami nophen Discontinued 1 TAB PO Q6H December 26, 2022 January 30, 2023 8:13pm Problems Active Problems Problem Classification Problem Date Documented Da te Episodic/Chronic Abdominal pain (14 sources) Left upper quadrant pain; Translations: [Left upper quadrant pain] Onset: 05-27-2022 03-19-2021 Episodic Diseases of mouth; excluding dental (4 sources) Infection of lip; Translations: [Diseases of lips] 10-20-2021 Episodic Disorders of teeth and jaw (4 sources) Jaw pain; Translations: [Jaw pain] 10-20-2021 Episodic Gastritis and duodenitis (3 sources) Gastritis; Translations: [Gastritis, unspecified, without bleeding] 05-27-2022 Episodic Headache; including migraine (4 sources) Headache; Translations: [Headache] 04-16-2021 Episodic Immunizations and screening for infectious disease (4 sources) Contact with or exposure to other viral diseases; Translations: [Exposure to COVID-19 virus] 01-05-2021 Episodic Nausea and vomiting (4 sources) Nausea and vomiting; Translations: [Nausea with vomiting, unspecified] 05-13-2021 Episodic Nonspecific chest pain (4 sources) Chest discomfort 01-04-2021 Episodic Open wounds of head; neck; and trunk (4 sources) Laceration of lip ; Translations: [Laceration without foreign body of lip, initial encounter] 10-20-2021 Episodic Other circulatory disease (4 sources) Elevated blood pressure; Translations: [Elevated blood-pressure reading, without diagnosis of hypertension] 04-15-2021 Episodic Other ear and sense organ disorders (4 sources) Impacted cerumen; Translations: [Impacted cerumen, bilateral] 04-15-2021 Episodic Other lower respiratory disease (4 sources) Cough; Translations: [Cough] 04-17-2021 Episodic Other upper respiratory disease (4 sources) Nasal sinus problem; Translations: [Other specified disorders of nose and nasal sinuses] 04-15-2021 Episodic Other upper respiratory infections (8 sources) Viral upper respiratory tract infection; Translations: [Acute upper respiratory infection, unspecified] 04-17-2021 Episodic Residual codes; unclassified (4 sources) Influenza-like symptoms; Translations: [Other general symptoms and signs] 04-16-2021 Episodic Spondylosis; intervertebral disc disorders; other back problems (6 sources) Stiff neck; Translations: [Torticollis] 12-26-2022 Episodic Sprains and strains (3 sources) Low back strain; Translations: [Strain of muscle, fascia and tendon of lower back, initial encounter] Onset: 12-26-2022 12-26-2022 Episodic Unclassified (4 sources) Finding of respiration; Translations: [Dyspnea or other respiratory complaints] 06-07-2021 Unclassified (1 source) Low back pain, unspecified; Translations: [Low back pain, unspecified] Onset: 12-26-2022 Unclassified (1 source) Cough, unspecified; Translations: [Cough, unspecified] Onset: 07-05-2022 Viral infection (10 sources) Infectious mononucleosis; Translations: [Infectious mononucleosis, unspecified without complication] 07-03-2022 Episodic Past or Other Problems Problem Classification Problem Date Documented Da te Episodic/Chronic Cardiac dysrhythmias (9 sources) Palpitations; Translations: [Palpitations] Onset: 05-26-2022 05-26-2022 Episodic Results Test Name Value Interpretation Reference Range Facil ity Vital Signs Date Time Vital Sign Value Performing Clinician Raul weir 01-30-2023 21:01-0500 Diastolic blood pressure 91 mm[Hg] NO [facility] 01-30-2023 21:01-0500 Heart rate 86 /min NO [facility] 01-30-2023 21:01-0500 Respiratory rate 18 /min NO [facility] 01-30-2023 21:01-0500 SaO2% (BldA) [Mass fraction] 98 % NO [facility] 01-30-2023 21:01-0500 Systolic blood pressure 134 mm[Hg] NO [facility] 01-30-2023 20:12-0500 Body temperature 97.9 [degF] NO [facility] 01-30-2023 19:54-0500 Body height 175.26 cm NO [facility] 01-30-2023 19:54-0500 Body mass index (BMI) [Ratio] 38.4 kg/m2 NO DOCTOR [facility] 01-30-2023 19:54-0500 Body weight 117.93 kg NO DOCTOR [facility] 12-26-2022 16:47-0500 Body temperature 97.7 [degF] NO DOCTOR [facility] 12-26-2022 16:47-0500 Diastolic blood pressure 78 mm[Hg] NO DOCTOR [facility] 12-26-2022 16:47-0500 Heart rate 88 /min NO DOCTOR [facility] 12-26-2022 16:47-0500 Respiratory rate 20 /min NO DOCTOR [facility] 12-26-2022 16:47-0500 SaO2% (BldA) [Mass fraction] 98 % NO DOCTOR [facility] 12-26-2022 16:47-0500 Systolic blood pressure 130 mm[Hg] NO DOCTOR [facility] 12-26-2022 15:50-0500 Body height 175.26 cm NO DOCTOR [facility] 12-26-2022 15:50-0500 Body mass index (BMI) [Ratio] 38.1 kg/m2 NO [facility] 12-26-2022 15:50-0500 Body weight 117.02 kg NO DOCTOR [facility] 07-05-2022 10:26-0400 Body temperature 99.2 [degF] [facility] Work Phone: 07-05-2022 10:26-0400 Diastolic blood pressure 92 mm[Hg] [facility] Work Phone: 07-05-2022 10:26-0400 Heart rate 98 /min [facility] Work Phone: 07-05-2022 10:26-0400 Respiratory rate 20 /min [facility] Work Phone: 07-05-2022 10:26-0400 SaO2% (BldA) [Mass fraction] 97 % [facility] Work Phone: 07-05-2022 10:26-0400 Systolic blood pressure 140 mm[Hg] [facility] Work Phone: 07-05-2022 10:16-0400 Body height 175.26 cm [facility] Work Phone: 07-05-2022 10:16-0400 Body mass index (BMI) [Ratio] 37.7 kg/m2 [facility] Work Phone: 07-05-2022 10:16-0400 Body weight 115.67 kg [facility] Work Phone: 07-03-2022 15:11-0400 Body temperature 97.9 [degF] [facility] Work Phone: 07-03-2022 15:11-0400 Diastolic blood pressure 84 mm[Hg] [facility] Work Phone: 07-03-2022 15:11-0400 Heart rate 117 /min [facility] Work Phone: 07-03-2022 15:11-0400 Respiratory rate 20 /min [facility] Work Phone: 07-03-2022 15:11-0400 SaO2% (BldA) [Mass fraction] 95 % [facility] Work Phone: 07-03-2022 15:11-0400 Systolic blood pressure 131 mm[Hg] [facility] Work Phone: 07-03-2022 14:06-0400 Body height 175.26 cm [facility] Work Phone: 07-03-2022 14:06-0400 Body mass index (BMI) [Ratio] 37.7 kg/m2 [facility] Work Phone: 07-03-2022 14:06-0400 Body weight 115.67 kg [facility] Work Phone: 05-27-2022 17:38-0400 Body temperature 98.3 [degF] [facility] Work Phone: 05-27-2022 17:38-0400 Diastolic blood pressure 90 mm[Hg] [facility] Work Phone: 05-27-2022 17:38-0400 Heart rate 89 /min [facility] Work Phone: 05-27-2022 17:38-0400 Respiratory rate 20 /min [facility] Work Phone: 05-27-2022 17:38-0400 Systolic blood pressure 154 mm[Hg] [facility] Work Phone: 05-27-2022 17:29-0400 SaO2% (BldA) [Mass fraction] 94 % [facility] Work Phone: 05-27-2022 17:13-0400 Body height 175.26 cm [facility] Work Phone: 05-27-2022 17:13-0400 Body mass index (BMI) [Ratio] 38.4 kg/m2 [facility] Work Phone: 05-27-2022 17:13-0400 Body weight 117.94 kg [facility] Work Phone: 05-26-2022 17:38-0400 Body temperature 97.9 [degF] [facility] Work Phone: 05-26-2022 17:38-0400 Diastolic blood pressure 88 mm[Hg] [facility] Work Phone: 05-26-2022 17:38-0400 Heart rate 120 /min [facility] Work Phone: 05-26-2022 17:38-0400 Respiratory rate 20 /min [facility] Work Phone: 05-26-2022 17:38-0400 SaO2% (BldA) [Mass fraction] 95 % [facility] Work Phone: 05-26-2022 17:38-0400 Systolic blood pressure 127 mm[Hg] [facility] Work Phone: 05-26-2022 17:25-0400 Body height 175.26 cm [facility] Work Phone: 05-26-2022 17:25-0400 Body mass index (BMI) [Ratio] 38.4 kg/m2 [facility] Work Phone: 05-26-2022 17:25-0400 Body weight 117.94 kg [facility] Work Phone: 01-04-2021 16:41-0500 BMI (Body Mass Index) 35.4 kg/m2 [facility] Work Phone: 01-04-2021 16:41-0500 Body Temperature 98.3 [degF] [facility] Work Phone: 01-04-2021 16:41-0500 Body weight 108.86 kg [facility] Work Phone: 01-04-2021 16:41-0500 BP Diastolic 91 mm[Hg] [facility] Work Phone: 01-04-2021 16:41-0500 BP Systolic 134 mm[Hg] [facility] Work Phone: 01-04-2021 16:41-0500 Height 175.26 cm [facility] Work Phone: 01-04-2021 16:41-0500 Pulse (Heart Rate) 91 /min [facility] Work Phone: 01-04-2021 16:41-0500 Pulse Oximetry 99 % [facility] Work Phone: 01-04-2021 16:41-0500 Respiratory Rate 18 /min [facility] Work Phone: Encounters Encounter Date Encounter Type Care Provider Facility Start: 01-30-2023 End: 01-30-2023 Emergency department patient visit NO FAMILY DOCTOR Facility:[facility] Start: 01-30-2023 End: 01-30-2023 ambulatory NO FAMILY DOCTOR Facility:[place] Start: 01-30-2023 Evaluation and management of inpatient SCRIPTING 2 [facility] Start: 01-30-2023 End: 01-30-2023 Emergency department patient visit NO DOCTOR [facility] Start: 01-30-2023 End: 01-30-2023 ambulatory NO FAMILY DOCTOR [facility] Work Phone: Start: 01-30-2023 End: 01-30-2023 Departed Referred NO DOCTOR [facility] Triage Start: 12-26-2022 End: 12-26-2022 Emergency department patient visit SHREON ARTEAGA Facility:[facility] Start: 12-26-2022 End: 12-26-2022 Emergency department patient visit NO DOCTOR [facility] Start: 12-26-2022 ambulatory NO FAMILY DOCTOR Facili ty:[place] Start: 12-26-2022 Evaluation and management of inpatient SHERON ARTEAGA [facility] Start: 07-05-2022 End: 07-05-2022 Emergency department patient visit GREGORY KENDALL Facility:[facility] Start: 07-05-2022 Evaluation and management of inpatient DALLIN JOHNS [facility] Start: 07-05-2022 End: 07-05-2022 Emergency department patient visit [facility] Start: 07-03-2022 End: 07-03-2022 Emergency department patient visit GABRIEL HAGAN Facility:[facility] Start: 07-03-2022 Evaluation and management of inpatient DALLIN JOHNS [facility] Start: 07-03-2022 End: 07-03-2022 Emergency department patient visit [facility] Start: 05-27-2022 End: 05-27-2022 Emergency department patient visit DAE TERRY Facility:[facility] Start: 05-27-2022 Evaluation and management of inpatient DALLIN JOHNS [facility] Start: 05-27-2022 End: 05-27-2022 Emergency department patient visit [facility] Start: 05-26-2022 End: 05-26-2022 Emergency department patient visit NO FAMILY DOCTOR Facility:[place] Start: 05-26-2022 Evaluation and management of inpatient DALLIN JOHNS [facility] Start: 05-26-2022 End: 05-26-2022 Emergency department patient visit [facility] Start: 01-04-2021 End: 01-04-2021 Emergency department patient visit [facility] Start: 09-27-2017 End: 09-27-2017 Emergency department patient visit Thalia Hunt Facility:[facility] Start: 09-26-2017 End: 09-26-2017 Emergency department patient visit Yanick Fish Call Facility:[facility] Procedures Date Procedure Procedure Detail Performing Clinician Start: 01-30-2023 CT of abdomen and pe lvis without contrast NO DOCTOR Start: 12-26-2022 CT of lumbar spine w ithout contrast NO DOCTOR Start: 07-03-2022 Plain chest X-ray Start: 05-27-2022 CT of abdomen and pe lvis without contrast Start: 05-26-2022 Plain chest X-ray Start: 01-04-2021 Plain chest X-ray Start: 01-04-2021 SARS-CoV-2 Rapid RNA (RT-PCR) SARS-CoV-2 Rapid RNA (RT-PCR) Plan of Treatment Date Care Activity Detail Author Patient Education [facility] Work Phone: Patient referral [facility] Work Phone: Payers Date Payer Category Payer Private Health Insurance [id number] 2017 Self-pay Unknown [id number] Unknown [id number] Unknown [id number] Unknown [id number] Unknown [id number] Unknown [id number] Unknown [id number] Unknown [id number] Unknown [id number] Social History Date Type Detail Facility Start: 01-04-2021 Tobacco smoking stat [facility] Never smoker (Never Smoked) [facility] Work Phone: Start: 01-04-2021 Never Smoked [facility] Work Phone: Start: 1995 Sex Assigned At Male [facility] Start: 05-26-2022 End: 01-30-2023 Tobacco smoking status [facility] Current some day smoker [facility] Start: 05-26-2022 Current Some D ay Smoker [facility] Start: 06-07-2021 No [facility] Start: 06-07-2021 Yes [facility] Work Phone: Start: 07-05-2022 End: 12-26-2022 Tobacco smoking status [facility] Current every day smoker [facility] Start: 07-05-2022 Current Every Day Smoker [facility] Goals Date Patient Goal Desired Activity /State Mental Status Date Assessment Result Facility 01-30-2023 Cognitive function Person;Place;Time [facility] Work Phone: 07-05-2022 Cognitive function Person;Place;Time [facility] Work Phone: 07-03-2022 Cognitive function Person;Place;Time [facility] Work Phone: 05-27-2022 Cognitive function Person;Place;Time [facility] Work Phone: 05-26-2022 Cognitive function Person;Place;Time [facility] Work Phone: 01-04-2021 Cognitive function Person;Place;Time [facility] Work Phone: Hospital Discharge instructions 07-05-2022 Note Date & Type Note Facility 07-05-2022 Hospital Discharg e instructions Additional Instructions Continue [id number] medications for symptomatic treatment as directed follow-up with your primary care doctor in 2 to 3 days. Return to emergency department for any difficulty breathing or worsening symptoms [facility] Work Phone: Evaluation note Note Date & Type Note Facility Evaluation note No assessment information availa ble [facility] Work Phone: Hospital Discharge instructions Note Date & Type Note Facility Hospital Discharge instructions Additional Instructions Rest. Drink plenty of fluids such as water, Gatorade to ensure hydration. Avoid heat exposure for the next couple of days. Seek medical attention for any chest pain, passing out or other worsening concerns. [facility] Work Phone: Hospital Discharge instructions Note Date & Type Note Facility Hospital Discharge instructions Additional Instructions Take medications as prescribed. Warm moist heat to the area. Return if any concerns. Follow-up with your family doctor. [facility] Work Phone: Hospital Discharge instructions Note Date & Type Note Facility Hospital Discharge instructions Additional Instructions Follow-up with the family medicine residency clinic by calling their office tomorrow. [facility] Work Phone: Summary Purpose Family History No Family History Records FoundNo Family History Records FoundNo Family History Records FoundNo Family History Records Found Advance Directives No Advanced Directives Records Found Advance Directive Response Recorded Date/ Time Code Status Full Code January 04 4:25pm Advance Directive Response Recorded Date/ Time Does Patient Have Advance Directives? No May 26, 2022 5:41pm Code Status Full Code May 26, 2022 5:41pm Advance Directive Response Recorded Date/ Time Does Patient Have Advance Directives? No July 05, 2022 10:18am Code Status Full Code July 05, 2022 10:18am Advance Directive Response Recorded Date/ Time Does Patient Have Advance Directives? No July 05, 2022 9:18am Code Status Full Code December 26 3:50pm Advance Directive Response Recorded Date/ Time Does Patient Have Advance Directives? No January 30, 2023 7:54pm Code Status Full Code January 30, 2023 7:54pm Chief Complaint and Reason for Visit Chief Complaint CHEST PAIN WHEN JUAN THING Chief Complaint HEART BEATING FAST, TROUBLE BREATHING Chief Complaint HEART BEATING FAST, TROUBLE BREATHING RIGHT FLANK PAIN COUGH COVID POSITIVE,COUGH Chief Complaint LOWER BACK PAIN Chief Complaint LOWER BACK PAIN ABD SWELLING Assessments No Assessments Information Available Discharge Instructions Additional Instructions Follow-up with primary care physician provided. Return for worsening or concerning symptoms. Additional Source Comments (unrecognized sect ion and content) No Status Records FoundNo Status Records FoundNo Status Records FoundNo Status Records Found INFORMATION SOURCE (unrecogn ized section and content) DATE CREATED AUTHOR AUTHOR'S ORGANIZ ATION 08/07/2019 [facility] DATE CREATED AUTHOR AUTHOR'S ORGANIZ ATION 02/05/2023 [facility] DATE CREATED AUTHOR AUTHOR'S ORGANIZ ATION 02/05/2023 [facility] Ambulatory Goals (unrecognized section and content) Goals may be documented in a n alternate sectionGoals may be documented in an alternate sectionGoals may be documented in an alternate sectionGoals may be documented in an alternate section Care Teams (unrecognized sec tion and content) Team Status: Inactive Member Role Status Dates NO FAMILY DOCTOR Primary Care Provider Active SHERON ARTEAGA DO Emergency Provider Active Team Status: Active Member Role Status Dates NO FAMILY DOCTOR Family Provider Active NO FAMILY DOCTOR Primary Care Provider Active Team Status: Inactive Member Role Status Dates NO FAMILY DOCTOR Primary Care Provide r, Attending Provider, Family Provider Active FOR RECORDS PERTAINING TO PATIENTS WHO ARE OR HAVE BEEN ENROLLED IN A CHEMICAL DEPENDENCY/SUBSTANCEABUSE PROGRAM, SOME INFORMATION MAY BE OMITTED. This clinical summary was aggregated from multiple sources. Caution should be exercised in using it in the provision of clinical care. This summary normalizes information from multiple sources, and as a consequence, information in this document may materially change the coding, format and clinical context of patient data. In addition, data may be omitted in some cases. CLINICAL DECISIONS SHOULD BE BASED ON THE PRIMARY CLINICAL RECORDS. [employer] provides no warranty or guarantee of the accuracy or completeness of information in this document.
== END 2024-01-06 19:00 | disposition left against medical advice (07) ==
LOC: ED 19:06
PROVIDERS: Emergency Provider Student in an Organized Health Care Education/Training Program; Visit Provider Student in an Organized Health Care Education/Training Program
DX: R00.2 Palpitations (principal); R11.2 Nausea with vomiting, unspecified
CPT/HCPCS: 93005